=== PATIENT | female | born 1950 | race Two or more races ===

== ENCOUNTER 2016-12-17 19:35 | Emergency (ER) | payer MEDICARE, MEDICAID ==
[~2016-12-17] VITALS: Ht 157.5 cm; Wt 54.4 kg
[~2016-12-17 19:35] MED LIST: ATORVASTATIN CA10 MG ORAL; METFORMIN HCL500 M1 ORAL
[2016-12-17] MEDS ORDERED: Meclizine 25mg tab ORAL STA (20:16)
[2016-12-17] MEDS ORDERED: LORazepam 0.5mg tab ORAL ONE (20:30)
[2016-12-17 20:48] LABS: EOSINOPHILS % (AUTO) 1.4 % (0.0-3.0); LYMPHOCYTES % (AUTO) 39.3 % (20.0-45.0); MEAN CORPUSCULAR HEMOGLOBIN 30.4 PG (27.0-31.0); MEAN CORPUSCULAR HGB CONC 33.4 G/DL (32.0-36.0); MEAN CORPUSCULAR VOLUME 91 FL (80-99); MEAN PLATELET VOLUME 7.7 FL (6.5-10.1); MONOCYTES % (AUTO) 7.6 % (1.0-10.0); NEUTROPHILS % (AUTO) 50.8 % (45.0-75.0); PLATELET COUNT 267 K/UL (150-450); RED BLOOD COUNT 4.21 M/UL (4.20-5.40); RED CELL DISTRIBUTION WIDTH 11.8 % (11.6-14.8); WHITE BLOOD COUNT 8.8 K/UL (4.8-10.8)
[2016-12-17 21:08] LABS: ALANINE AMINOTRANSFERASE 11 U/L (3-33); ALBUMIN/GLOBULIN RATIO 1.4 (1.0-2.7); ANION GAP 14 (5-15); ASPARTATE AMINO TRANSFERASE 13 U/L (5-40); CALCIUM 10.1 mg/dL (8.6-10.2); CARBON DIOXIDE 28 mEQ/L (20-30); CHLORIDE 92 mEQ/L (98-107); GLOMERULAR FILTRATION RATE 55.1 mL/min (>60); HEMOLYSIS 6; MAGNESIUM 1.8 mg/dL (1.7-2.5); POTASSIUM 4.6 mEQ/L (3.4-4.9); SODIUM 134 mEQ/L (135-145); TOTAL PROTEIN 8.4 g/dL (6.6-8.7)
[2016-12-17 21:27] LABS: PROTHROMBIN TIME 9.7 SEC (9.30-11.50)
[2016-12-17 21:37] LABS: APPEARANCE,URINE CLEAR; KETONES,URINE NEGATIVE (NEGATIVE); LEUKOCYTE ESTERASE ,URINE NEGATIVE (NEGATIVE); NITRITE,URINE NEGATIVE (NEGATIVE); PH,URINE 5 (4.5-8.0); PROTEIN,URINE NEGATIVE (NEGATIVE); UROBILINOGEN,URINE NORMAL MG/DL (0.0-1.0)
[2016-12-17] MEDS ORDERED: LORazepam 1mg tab ORAL ONE (21:45)
[2016-12-17 22:20] VITALS: BP 122/71
[2016-12-17 22:23] LABS: ERYTHROCYTE SEDIMENTATION RATE 30 MM/HR (0-30)
[2016-12-17] MEDS ORDERED: ACETAZOLAMIDE250 MG ORAL (23:17)
[2016-12-17] MEDS ORDERED: ATIVAN1 MG ORAL (23:17)
[2016-12-17 23:45] VITALS: BP 122/71
--- NOTE | 2016-12-18 05:56 | Emergency Room Report ---
History of Present Illness General Chief Complaint: General Complaint Source: Patient Present Illness HPI Patient presents with 3 days of tinnitus. Denies RIOS. No ear pain. Hyperacusis - sounds bothering her. Unable to sleep due to constant noise and increased noise. No vertigo. No weakness. No fever. Was seen by brother who is ENT 2 days ago. He cleaned wax out of ear. The sound seems to be coming from both ears. Anxious and depressed. No meds taken. No chest pain, sore throat, congestion, allergies. Allergies: Coded Allergies: No Known Allergies (Unverified , 05/20/13) Patient History Now: No Nursing Documentation-PMH Hx Cardiac Problems: No Hx Diabetes: Yes Hx Cancer: No Hx Gastrointestinal Problems: No Hx Neurological Problems: No Physical Exam Vital Signs Date Time Temp Pulse Resp B/P Pulse Ox O2 Delivery O2 Flow Rate FiO2 12/17/16 19:40 98.2 94 15 139/73 98 Room Air Sp02 EP Interpretation: reviewed, normal General Appearance: well appearing, no apparent distress, GCS 15 Head: normocephalic Eyes: bilateral eye EOMI, bilateral eye PERRL, bilateral eye normal inspection ENT: TMs + canals normal - no masses or erythema, other - sound decreased with occlusion of L ear Neck: supple Respiratory: lungs clear, normal breath sounds Cardiovascular #1: regular rate, rhythm Cardiovascular #2: 2+ radial (R) Gastrointestinal: normal inspection, normal bowel sounds, non tender, no mass, non-distended Musculoskeletal: back normal, gait/station normal, normal range of motion Neurologic: alert, oriented x3, hydro operator III-XII nml as tested - patient wants to move head with EOM testing (final result is normal EOM), motor strength/tone normal, DTRs symmetric, sensory intact, cerebellar normal, normal gait, speech normal Psychiatric: anxious Skin: normal inspection, warm/dry Medical Decision Making Diagnostic Impression: Primary Impression: New onset tinnitus Qualified Codes: H93.19 - Tinnitus, unspecified ear Additional Impression: Hyperacusis Qualified Codes: H93.239 - Hyperacusis, unspecified ear ER Course Patient with tinnitus. DDx: reaction to medication, viral process, Meniere's disease, schwanoma, acoustic neuroma, electrolyte abnormality, anxiety/ depression amongst others. Urgent evaluation with labs. Patient also requests CT of head (late request). Treat with ativan, antivert and observation. Initial treatment reported as ineffective. Labs and CT unremarkable. Treat wit diamox, more ativan. Improved with marked decreased sy. Patient stable for outpatient observation and treatment. Laboratory Tests Test 12/17/16 20:37 White Blood Count 8.8 K/UL (4.8-10.8) Red Blood Count 4.21 M/UL (4.20-5.40) Hemoglobin 12.8 G/DL (12.0-16.0) Hematocrit 38.3 % (37.0-47.0) Mean Corpuscular Volume 91 FL (80-99) Mean Corpuscular Hemoglobin 30.4 PG (27.0-31.0) Mean Corpuscular Hemoglobin Concent 33.4 G/DL (32.0-36.0) Red Cell Distribution Width 11.8 % (11.6-14.8) Platelet Count 267 K/UL (150-450) Mean Platelet Volume 7.7 FL (6.5-10.1) Neutrophils (%) (Auto) 50.8 % (45.0-75.0) Lymphocytes (%) (Auto) 39.3 % (20.0-45.0) Monocytes (%) (Auto) 7.6 % (1.0-10.0) Eosinophils (%) (Auto) 1.4 % (0.0-3.0) Basophils (%) (Auto) 1.0 % (0.0-2.0) Erythrocyte Sedimentation Rate 30 MM/HR (0-30) Prothrombin Time 9.7 SEC (9.30-11.50) Prothrombin Time INR 1.0 (0.9-1.1) PTT 27 SEC (23-33) Urine Color Pale yellow Urine Appearance Clear Urine pH 5 (4.5-8.0) Urine Specific [place] 1.005 (1.005-1.035) Urine Protein Negative (NEGATIVE) Urine Glucose (UA) 3+ (NEGATIVE) H Urine Ketones Negative (NEGATIVE) Urine Occult Blood Negative (NEGATIVE) Urine Nitrite Negative (NEGATIVE) Urine Bilirubin Negative (NEGATIVE) Urine Urobilinogen Normal MG/DL (0.0-1.0) Urine Leukocyte Esterase Negative (NEGATIVE) Sodium Level 134 mEQ/L (135-145) L Potassium Level 4.6 mEQ/L (3.4-4.9) Chloride Level 92 mEQ/L (98-107) L Carbon Dioxide Level 28 mEQ/L (20-30) Anion Gap 14 (5-15) Blood Urea Nitrogen 23 mg/dL (7-23) Creatinine 1.0 mg/dL (0.5-0.9) H Estimate Glomerular Filtration Rate 55.1 mL/min (>60) Glucose Level 245 mg/dL (74-106) H Calcium Level 10.1 mg/dL (8.6-10.2) Magnesium Level 1.8 mg/dL (1.7-2.5) Total Bilirubin < 0.2 mg/dL (0.0-1.2) Aspartate Amino Transferase (AST) 13 U/L (5-40) Alanine Aminotransferase (ALT) 11 U/L (3-33) Alkaline Phosphatase 64 U/L (35-104) Total Creatine Kinase 53 U/L (26-140) Total Protein 8.4 g/dL (6.6-8.7) Albumin 5.0 g/dL (3.5-5.2) Globulin 3.4 g/dL Albumin/Globulin Ratio 1.4 (1.0-2.7) CT/MRI/US Diagnostic Results CT/MRI/US Diagnostic Results : Imaging Test Ordered: head Impression nl brain, bones, ST Last Vital Signs Date Time Temp Pulse Resp B/P Pulse Ox O2 Delivery O2 Flow Rate FiO2 12/17/16 23:45 98.5 78 16 122/71 100 Room Air Status: improved Disposition: HOME, SELF-CARE Condition: Improved Scripts Acetazolamide* (ACETAZOLAMIDE*) 250 Mg Tablet 250 MG ORAL DAILY, #7 TAB Prov: Pablo Daley M.D. 12/17/16 Lorazepam* (ATIVAN*) 1 Mg Tablet 1 MG ORAL THREE TIMES A DAY, #10 TAB Prov: Pablo Daley M.D. 12/17/16 Patient Instructions: Tinnitus Additional Instructions: I believe you have Meniere's disease. You need to see your doctor to make sure the medicine I am prescribing is not causing your potassium to be low. Also you need to see an ENT specialist (ask your doctor for a referral). Try not to take the ativan every day. Take it at least at night to help you sleep. Try not to take more than 3 times a week. Pablo Daley M.D. Dec 18, 2016 05:56
--- NOTE | 2016-12-18 10:03 | Diagnostic Imaging Report ---
CT Brain without Intravenous Contrast INDICATION: Dizziness. COMPARISON: None TECHNIQUE: Serial axial images were obtained from the the skull base through the vertex without intravenous contrast. Coronal reformats were obtained. Dose Estimate: Total DLP 1337 mGycm CTDIvol 70 mGy FINDINGS: Few scattered periventricular and subcortical white matter hypodensities are nonspecific but may reflect the sequela of chronic microangiopathy. There is no evidence of acute intracranial hemorrhage or territorial infarct. The cortical sulci, ventricles and extra-axial CSF spaces appear prominent but likely normal for patient's age. There is no space occupying lesion, mass effect or midline shift. The visualized paranasal sinuses and mastoid air cells are clear. The osseous structures are unremarkable. IMPRESSION: 1. No acute intracranial hemorrhage, midline shift or mass effect. 2. Few scattered white matter hypodensities are nonspecific but may reflect the sequela of chronic microangiopathy.
== END 2016-12-17 23:45 | disposition home or self-care (01) ==
LOC: EMR 20:59
DX: H93.19 Tinnitus, unspecified ear (principal); H93.239 Hyperacusis, unspecified ear; E11.9 Type 2 diabetes mellitus without complications
CPT/HCPCS: 36415; 70450; 80053; 81003; 82550; 83735; 85025; 85610; 85651; 85730; 99284

== ENCOUNTER 2016-12-31 15:45 | Emergency (ER) | payer MEDICARE, OTHER ==
[~2016-12-31] VITALS: Ht 157.5 cm; Wt 54.4 kg
[~2016-12-31 15:45] MED LIST changes: +ACETAZOLAMIDE250 MG ORAL; +ATIVAN1 MG ORAL
[2016-12-31 16:05] VITALS: BP 135/70
[2016-12-31] MEDS ORDERED: ACETAZOLAMIDE250 MG ORAL (16:25)
[2016-12-31] MEDS ORDERED: ATIVAN1 MG ORAL (16:25)
[2016-12-31] MEDS ORDERED: VERTICALM25 MG ORAL (16:25)
--- NOTE | 2016-12-31 18:57 | Emergency Room Report ---
History of Present Illness General Chief Complaint: General Complaint Source: Patient (ASHOK GARCIA) Present Illness HPI The patient is a 66-year-old female presenting for tinnitus. The patient was seen in this emergency department 2 weeks prior and full workup including blood work and CT of the head were unremarkable. The patient was given a prescription for Ativan and acetazolamide And was told to followup with ENT. The patient states that these medications did help and the tinnitus resolved but returned yesterday. The patient has been unable to see an ENT who specializes in Tinnitus .The patient denies any pain. Patient describes sound as a loud "WHOOSH" to both ears but primarily left. The patient denies any other symptoms including nausea, vomiting, fever, chills, dizziness, blurred vision, ear pain, ear discharge, RIOS (ASHOK GARCIA) Allergies: Coded Allergies: No Known Allergies (Unverified , 05/20/13) Patient History Past Medical History: see triage record Pertinent Family History: none Now: No Reviewed Nursing Documentation: PMH: Agreed, PSxH: Agreed (ASHOK GARCIA) Nursing Documentation-PMH Past Medical History: No History, Except For Hx Cardiac Problems: No Hx Diabetes: Yes Hx Cancer: No Hx Gastrointestinal Problems: No Hx Neurological Problems: No (ASHOK GARCIA) Review of Systems All Other Systems: negative except mentioned in HPI (ASHOK GARCIA) Physical Exam Vital Signs Date Time Temp Pulse Resp B/P Pulse Ox O2 Delivery O2 Flow Rate FiO2 12/31/16 15:56 98.4 99 16 146/75 100 Room Air Sp02 EP Interpretation: reviewed, normal General Appearance: no apparent distress, alert, GCS 15, non-toxic Head: normocephalic, atraumatic Eyes: bilateral eye PERRL, bilateral eye normal inspection ENT: hearing grossly normal, normal pharynx, no angioedema, normal voice, TMs + canals normal, uvula midline Neck: full range of motion, supple/symm/no masses Musculoskeletal: back normal, gait/station normal, normal range of motion, non- tender Neurologic: alert, oriented x3, responsive, motor strength/tone normal, sensory intact, speech normal Psychiatric: judgement/insight normal, memory normal, no suicidal/homicidal ideation, anxious Skin: normal color, no rash, warm/dry, well hydrated Lymphatic: no adenopathy (ASHOK GARCIA) Medical Decision Making PA Attestation Dr. Lyles is my supervising physician. Patient management was discussed with my supervising physician (ASHOK GARCIA) Diagnostic Impression: Primary Impression: Tinnitus ER Course The patient is a 66-year-old female presenting for tinnitus. Differential diagnosis include but not limited to otitis externa, otitis media, mastoiditis, TMJ, tinnitus PE: vitals WNL. Pt appears anxious HEENT exam: Ears show no signs of infection. External auditory canal is clear. No erythema or edema. Tympanic membranes are intact bilaterally. No bulging or erythema. No cervical lymphadenopathy TMJ is present on right side The patient will be given refills of medications and meclizine will be added. The patient will be discharged and is advised to followup with ENT as soon as possible as the emergency department will not be able to help with long-term treatment. ER precautions are given (ASHOK GARCIA) ER Course I evaluated this patient in the ED at [facility] with my advanced practice provider (Physician Casting Operator Helper) colleague, who practices under my general supervision. My impressions concur with the advanced practice provider in regards to their obtained history of present illness, physical exam, general management, diagnosis, and disposition. In particular, I agree with PA-obtained interpretation of imaging, rhythm strip. For the evening and overnight shifts, we do not have the benefit of an in-house Radiologist to review xrays so our interpretation may be limited. Patients are to be discharged only with normal vital signs (or if we discussed a particular exception), a plan for follow-up care, and understand to return to the ED for worsening symptoms. Please see midlevel healthcare providers note for further details. (DOUG LYLES M.D.) Last Vital Signs Date Time Temp Pulse Resp B/P Pulse Ox O2 Delivery O2 Flow Rate FiO2 12/31/16 16:33 98.4 89 16 135/70 100 Room Air Status: improved (ASHOK GARCIAAAntonio) Disposition: HOME, SELF-CARE Condition: Improved Scripts Lorazepam* (ATIVAN*) 1 Mg Tablet 1 MG ORAL THREE TIMES A DAY, #15 TAB Prov: ASHOK GARCIAA. 12/31/16 Acetazolamide* (ACETAZOLAMIDE*) 250 Mg Tablet 250 MG ORAL DAILY, #7 TAB Prov: ASHOK GARCIA.A. 12/31/16 Meclizine Hcl* (VERTICALM*) 25 Mg Tablet 25 MG ORAL DAILY, #7 TAB Prov: ASHOK GARCIA P.A. 12/31/16 Referrals: NOT CHOSEN IPA/,REFERRING (PCP) Patient Instructions: Tinnitus Additional Instructions: I discussed my findings with the patient. All questions and concerns have been answered. Treatment and medication compliance have been addressed. I advised the patient that they need to follow up with PMD in 3-5 days. Return to ED if symptoms worsen, new symptoms arise, or if needed for any reason. Patient verbalized understanding of discharge instructions. The patient will keep upcoming appointment with tinnitus specialist as discussed. ASHOK GARCIA Dec 31, 2016 18:57 DOUG LYLES M.D. Jan 01, 2017 14:32
== END 2016-12-31 16:33 | disposition home or self-care (01) ==
LOC: EMR 16:05
DX: H93.19 Tinnitus, unspecified ear (principal); M26.601 Right temporomandibular joint disorder, unspecified; E11.9 Type 2 diabetes mellitus without complications
CPT/HCPCS: 99284

== ENCOUNTER 2017-09-10 14:38 | Emergency (ER) | payer MEDICARE, OTHER ==
[~2017-09-10] VITALS: Ht 157.5 cm; Wt 51.7 kg
[~2017-09-10 14:38] MED LIST changes: +ALPRAZOLAM0.5 MG PO; +GLUCOPHAGE500 MG PO; +MULTIVITAMINS1 EAC2 PO; +VERTICALM25 MG ORAL
--- NOTE | 2017-09-10 15:35 | Emergency Room Report ---
History of Present Illness General Chief Complaint: Pain Source: Patient Present Illness HPI 67-year-old female, history of diabetes, presents with left knee pain for 4 days. Patient states that she got up from standing position, noticed that her left knee became increasingly painful and swollen. Denies falling or twisting her knee. Denies any fever chills nausea vomiting. States that it was very swollen on , she elevated and iced it and the swelling has come down. States that she has been able to ambulate however does complain of pain. She has been taking Vicodin with improvement of the pain Allergies: Coded Allergies: NYLON (Verified Allergy, Unknown, 09/10/17) Uncoded Allergies: METALS (Allergy, Unknown, 09/10/17) Patient History Past Medical History: see triage record Past Surgical History: none Pertinent Family History: none Reviewed Nursing Documentation: PMH: Agreed, PSxH: Agreed Nursing Documentation-PMH Hx Cardiac Problems: Yes Hx Diabetes: Yes Hx Cancer: No Hx Gastrointestinal Problems: Yes Hx Neurological Problems: No Review of Systems All Other Systems: negative except mentioned in HPI Physical Exam Vital Signs Date Time Temp Pulse Resp B/P (MAP) Pulse Ox O2 Delivery O2 Flow Rate FiO2 09/10/17 15:10 98.4 119 16 143/79 99 Room Air Sp02 EP Interpretation: reviewed, normal General Appearance: normal inspection, well appearing, no apparent distress, alert, GCS 15, non-toxic Head: normocephalic, atraumatic Eyes: bilateral eye normal inspection, bilateral eye PERRL, bilateral eye EOMI ENT: normal ENT inspection, normal pharynx, normal voice, moist mucus membranes Neck: normal inspection, full range of motion, supple Respiratory: normal inspection, lungs clear, normal breath sounds, no respiratory distress, no retraction, no wheezing, speaking full sentences, chest symmetrical Cardiovascular #1: normal inspection, regular rate, rhythm, normal capillary refill Cardiovascular #2: 2+ radial (R), 2+ radial (L) Gastrointestinal: normal inspection, non tender, soft, non-distended, no guarding Musculoskeletal: other - Left knee with effusion, not warm, has full range of motion however does complain of pain, tender to palpation, no overlying erythema Neurologic: normal inspection, alert, oriented x3, responsive, motor strength/ tone normal, sensory intact, normal gait, speech normal Psychiatric: normal inspection, judgement/insight normal, memory normal Skin: normal inspection, normal color, no rash, warm/dry, well hydrated, normal turgor Medical Decision Making Diagnostic Impression: Primary Impression: Effusion, left knee Additional Impression: Left knee pain ER Course 67-year-old female with left knee pain DDX: Contusion, fracture, ligamentous injury, arthritis, septic arthritis At this time I am not concerned with septic arthritis given patient is nontoxic- appearing, has full range of motion, does not have any warmth or erythema Plan: Young wrap ER course: XR reveals effusion without fracture Disposition: Patient is to be discharged home Patient educated to rest, ice, and elevate extremity and to avoid vigorous activity. Strict precautions discussed with patient on when to return to the emergency room including increased redness or swelling joints, increased pain/swelling of extremity, fever or chills, which could indicate severe illness. Patient is to follow up with their primary care doctor within 5 days. Patient also instructed to follow up with an orthopedic doctor if continuing to have mild/moderate pain as she may need further outpatient imaging. Patient agrees with plan. Please note that this Emergency Department Report was dictated using [employer] technology software, occasionally this can lead to erroneous entry secondary to interpretation by the dictation equipment. Xray ordered: Left knee 3 view Indication: Pain EP Interpretation: Yes Interpretation: + Effusion , no fractures Impression: Effusion Electronically signed by Grzegorz Chavez MD Last Vital Signs Date Time Temp Pulse Resp B/P (MAP) Pulse Ox O2 Delivery O2 Flow Rate FiO2 09/10/17 15:10 98.4 119 16 143/79 99 Room Air Disposition: HOME, SELF-CARE Condition: Improved Grzegorz Chavez M.D. Sep 10, 2017 15:35
[2017-09-10 18:40] VITALS: BP 145/85
--- NOTE | 2017-09-11 13:01 | Diagnostic Imaging Report ---
Indication: Pain 3 views of the left knee were obtained. Findings: There is no obvious fracture seen. The study is technically limited due to the knee being wrapped. There is evidence of a joint effusion with opacification of the suprapatellar region. Tibial spines are ill-defined. Small osteophytes noted in the patellofemoral compartment. IMPRESSION: No obvious fracture. Some limitations on this study. Consider CT as clinically warranted. Joint effusion noted.
== END 2017-09-10 16:40 | disposition home or self-care (01) ==
LOC: MERGE 15:05 → EMR 15:05
DX: M25.462 Effusion, left knee (principal); M25.562 Pain in left knee; E11.9 Type 2 diabetes mellitus without complications
CPT/HCPCS: 99283

== ENCOUNTER 2020-03-16 13:19 | Emergency (ER) | payer MEDICARE, OTHER ==
[~2020-03-16] VITALS: Ht 157.5 cm; Wt 61.7 kg
--- NOTE | 2020-03-16 13:26 | NUR ---
ED Nurse Note: Pt ambulated to ED d/t chronic low back pain with 10/10 scale. Pt is AOx4, calm and cooperative. VSS, on RA, afebrile on triage. Placed on bed.
--- NOTE | 2020-03-16 13:28 | NUR ---
ED Nurse Note: ERPA at bedside.
[2020-03-16 13:30] VITALS: BP 129/73
--- NOTE | 2020-03-16 13:40 | NUR ---
ED Nurse Note: urine collected, sent to labs.
[2020-03-16] MEDS ORDERED: Morphine Sulfate 2mg/ml Inj(IV/IM USE ONLY) IM ONE (13:45)
[2020-03-16 14:10] LABS: APPEARANCE,URINE CLEAR; BILIRUBIN, URINE NEGATIVE (NEGATIVE); COLOR,URINE PALE YELLOW; GLUCOSE, URINE (UA) 1+ (NEGATIVE); KETONES,URINE NEGATIVE (NEGATIVE); LEUKOCYTE ESTERASE ,URINE 1+ (NEGATIVE); NITRITE,URINE NEGATIVE (NEGATIVE); PH,URINE 5 (4.5-8.0); PROTEIN,URINE NEGATIVE (NEGATIVE); UROBILINOGEN,URINE NORMAL MG/DL (0.0-1.0)
--- NOTE | 2020-03-16 14:49 | Diagnostic Imaging Report ---
EXAM: CT CT Pelvis no Contrast INDICATION: Reason For Exam: PAIN. COMPARISON: None TECHNIQUE: Axial images were obtained through the pelvis without intravenous contrast. Sagittal and coronal reformats are generated. All CT scans at this facility are performed using dose modulation techniques as appropriate to a performed exam including the following: automated exposure control with adjustment of the mA and/or kV according to patient size. RADIATION DOSE: CTDIvol: 4.7 mGy DLP: 152.1 mGy-cm Dose information generated by the CT scanner is available in PACS. FINDINGS: Small bowel loops are nondistended. There is diverticulosis without sign of acute diverticulitis. The appendix is normal. There is no free fluid or free air. No pathologic adenopathy demonstrated. Urinary bladder appears unremarkable. Bony pelvis appears intact. No acute bony abnormality seen. Slight sclerosis noted at the left pubic symphysis and superior pubic ramus perhaps sequela of old trauma. IMPRESSION: NO ACUTE BONY ABNORMALITY OF THE PELVIS. SLIGHT SCLEROSIS NOTED INVOLVING THE LEFT SUPERIOR PUBIC RAMUS AND PUBIC SYMPHYSIS REGION PERHAPS SEQUELA OF OLD HEALED TRAUMA. DIVERTICULOSIS
--- NOTE | 2020-03-16 15:03 | Diagnostic Imaging Report ---
EXAM: CT CT L Spine no Contrast CLINICAL HISTORY: Back pain. TECHNIQUE: Axial images obtained through the lumbar spine with subsequent sagittal and coronal reformat images. All CT scans at this facility are performed using dose modulation techniques as appropriate to a performed exam including the following: automated exposure control with adjustment of the mA and/or kV according to patient size. RADIATION DOSE: CTDIvol: 7.2 mGy DLP: 216.2 mGy-cm Dose information generated by the CT scanner is available in PACS. COMPARISON: None FINDINGS: Alignment is mostly anatomic. There is minimal degenerative anterolisthesis of L3 on L4 and L4 on L5. Vertebral bodies are intact without compression deformity. There is no fracture, bony lesions or erosions. Disc heights are relatively well-maintained. Evaluation of disc disease by CT is limited but there is mild pseudobulging at L3-4 estimated at 2 mm and there is also mild pseudobulging at L4-5 approximately 2 to 3 mm. Bilateral facet hypertrophy and ligamentum flavum also noted at both levels. There is estimated mild to moderate narrowing of the spinal canal at L3-4 and moderate narrowing of the spinal canal at L4-5. No acute paraspinal soft tissue abnormality seen. There is diverticulosis of the sigmoid colon. IMPRESSION: SPONDYLOSIS OF THE LUMBAR SPINE NOTED ABOVE. SLIGHT ANTEROLISTHESIS OF L3 ON L4 AND L4 AND L5 RELATED TO DEGENERATIVE DISC AND FACET DISEASE. MILD TO MODERATE SPINAL CANAL NARROWING AT L3-4 AND MODERATE SPINAL CANAL NARROWING AT L4-5.
[2020-03-16] MEDS ORDERED: IBUPROFEN600 M1 ORAL (15:08)
[2020-03-16] MEDS ORDERED: ACETAMINOPHEN-1 EAC1 ORAL (15:08)
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
--- NOTE | 2020-03-16 15:15 | NUR ---
ER DISCHARGE NOTE: Patient is cleared to be discharged per ERMD, pt is aox4, on room air, with stable vital signs. pt was given dc and prescription instructions, pt was able to verbalize understanding, pt id band removed without complications. pt is able to ambulate with steady gait. pt took all belongings.
[2020-03-16 15:16] VITALS: BP 125/80
== END 2020-03-16 15:15 | disposition home or self-care (01) ==
LOC: EMR 13:45
DX: M47.9 Spondylosis, unspecified (principal); M48.061 Spinal stenosis, lumbar region without neurogenic claudication; K57.90 Diverticulosis of intestine, part unspecified, without perforation or abscess without bleeding; Z91.048 Other nonmedicinal substance allergy status; E11.9 Type 2 diabetes mellitus without complications
CPT/HCPCS: 72131; 72192; 81003; 96372; 99284; J2270

== ENCOUNTER 2020-04-08 11:43 | Emergency (ER) | payer MEDICARE, OTHER ==
[~2020-04-08] VITALS: Ht 157.5 cm; Wt 57.2 kg
[~2020-04-08 11:43] MED LIST changes: +ACETAMINOPHEN-1 EAC1 ORAL; +IBUPROFEN600 M1 ORAL
[2020-04-08 11:50] VITALS: BP 134/72
--- NOTE | 2020-04-08 12:40 | Emergency Room Report ---
History of Present Illness General Chief Complaint: Lower Back Pain or Injury Source: Patient Present Illness HPI Patient presents with increased pain in the left lower lumbar area radiating down to her thigh. She has a long history of degenerative disc disease. Surgery was recommended but she is afraid to go through with this due to the possibility of being disabled from it. She says that no medicines are working for her at this time. She has taken Vicodin in the past. She says she is not taking in this at this time. She has also been on gabapentin. She denies fevers or chills. She denies recent trauma. She denies incontinence. There is no numbness in the legs. She denies weakness. She is not taking blood thinners. She denies oncologic problems. She rates the pain 8/10 and somewhat burning and aching. It is constant. She denies increased pain when she sits down or bends over. The back pain is been present for approximately 2 years. Recently she is had swelling in her ankles. This is a new problem and has not been evaluated. She denies calf tenderness, pleuritic chest pain or hemoptysis. She denies pain associated with the swelling. No sore throat, palpitations, nausea, vomiting, diarrhea, dysuria, abdominal pain, shortness of breath, rashes, depression, anxiety, visual changes, dizziness, headache. Patient is a type II diabetic on metformin. Allergies: Coded Allergies: NYLON (Verified Allergy, Unknown, 10/04/17) Uncoded Allergies: METALS (Allergy, Unknown, 10/04/17) COVID-19 Screening Contact w/high risk pt: No Recent Travel to affected area: No Experienced COVID-19 symptoms?: No COVID-19 Testing performed CLAY MINER: No Patient History Past Medical History: see triage record, DM, other - Lumbar disc disease Past Surgical History: other - Hernia repair, cataract surgery Social History: Denies: smoking Social History Narrative Psychologist Reviewed Nursing Documentation: PMH: Agreed; PSxH: Agreed Nursing Documentation-PMH Past Medical History: No History, Except For Hx Cardiac Problems: No - back pain Hx Diabetes: Yes Hx Cancer: No Hx Gastrointestinal Problems: No Hx Neurological Problems: No Review of Systems All Other Systems: negative except mentioned in HPI Physical Exam Vital Signs Date Time Temp Pulse Resp B/P (MAP) Pulse Ox O2 Delivery O2 Flow Rate FiO2 04/08/20 11:44 97.9 90 18 131/68 (89) 99 Room Air Sp02 EP Interpretation: reviewed, normal General Appearance: well appearing, no apparent distress, GCS 15 Head: normocephalic Eyes: bilateral eye PERRL - Silastic lenses ENT: moist mucus membranes Neck: full range of motion, supple Respiratory: lungs clear, normal breath sounds Cardiovascular #1: regular rate, rhythm, edema - Bilaterally 1+ Cardiovascular #2: 2+ radial (R), 2+ dorsalis pedis (R), 2+ dorsalis pedis (L) Gastrointestinal: normal inspection, normal bowel sounds, non tender, no mass, non-distended Genitourinary: no CVA tenderness Musculoskeletal: normal range of motion, no calf tenderness, gait/station normal, tender, other - Straight leg raise negative bilateral Neurologic: alert, motor strength/tone normal, oriented x3, sensory intact, cerebellar normal, speech normal Psychiatric: mood/affect normal Reflexes: 2+ knee (R), 2+ knee (L); 1+ ankle (R), 1+ ankle (L) Skin: no rash, normal color, warm/dry Medical Decision Making Diagnostic Impression: Primary Impression: Low back pain Qualified Codes: M54.5 - Low back pain Additional Impression: Edema Qualified Codes: R60.0 - Localized edema ER Course Patient presents with lumbar pain radiating to her left thigh along with new onset edema. Differential includes sciatica, degenerative disc disease, radiculopathy, muscle spasm, UTI amongst others. No red flags signs or symptoms. Differential of the edema includes renal dysfunction, right heart failure, malnutrition amongst others. DVT is excluded based on physical exam. There is no evidence of pulmonary embolus at this time. Discussed evaluation with patient for edema with labs. Patient treated with Tylenol and Robaxin. Patient states she has a physical therapy appointment and cannot take the time for laboratory evaluation. I discussed the importance of determining whether she has any renal dysfunction at this time particularly with the consideration of treating with nonsteroidal anti-inflammatory medications with the underlying comorbidity of diabetes on metformin. She understands this but insists on leaving. Exam most consistent with degenerative disc disease with some radiculopathy without signs of sciatica. Patient encouraged that neurologic exam is good at this time. The pain is somewhat improved at this time. She states that in the future she may elect to come back to have further evaluation of the edema. No medical emergency at this time. Patient is stable for outpatient observation and treatment. Last Vital Signs Date Time Temp Pulse Resp B/P (MAP) Pulse Ox O2 Delivery O2 Flow Rate FiO2 04/08/20 13:00 98.1 72 18 137/79 98 Room Air Status: improved Disposition: HOME, SELF-CARE Condition: Improved Scripts Acetaminophen (Tylenol) 325 Mg Tablet 650 MG ORAL Q6H PRN for Prn Pain/Headache/Temp > 101, #20 TAB 0 Refills Prov: Pablo Daley MD 04/08/20 Methocarbamol* (ROBAXIN-500*) 500 Mg Tablet 500 MG ORAL TID, #10 TAB 0 Refills Prov: Pablo Daley MD 04/08/20 Pablo Daley MD Apr 08, 2020 12:40
[2020-04-08] MEDS ORDERED: ROBAXIN-500MG ORAL (12:43)
[2020-04-08] MEDS ORDERED: TYLENOL325 MG ORAL (12:43)
[2020-04-08] MEDS ORDERED: Methocarbamol 500mg tab ORAL ONE ×2 (12:45→12:47)
[2020-04-08 13:00] VITALS: BP 137/79
== END 2020-04-08 13:00 | disposition home or self-care (01) ==
LOC: EMR 12:09
DX: M54.5 Low back pain (principal); R60.0 Localized edema; E11.9 Type 2 diabetes mellitus without complications; M51.36 Other intervertebral disc degeneration, lumbar region
CPT/HCPCS: 99282

== ENCOUNTER 2020-04-09 15:05 | Emergency (ER) | payer MEDICARE, OTHER ==
[~2020-04-09] VITALS: Ht 157.5 cm; Wt 57.2 kg
[~2020-04-09 15:05] MED LIST changes: +ROBAXIN-500MG ORAL; +TYLENOL325 MG ORAL
--- NOTE | 2020-04-09 15:25 | NUR ---
ED Nurse Note:pt. came from home with chronic lower back pain no injury reported, seen by ER PA, then was given pain meds
--- NOTE | 2020-04-09 15:34 | Emergency Room Report ---
History of Present Illness General Chief Complaint: Lower Back Pain or Injury Source: Patient Present Illness HPI 70-year-old female with history of chronic back injury who has been told multiple times by crime data specialist and needs operation here requesting blood work. Patient reports that she was here at [facility] yesterday and was told by the physician on duty yesterday that she can come back for further blood work today as she had to leave early yesterday. Patient arrives at 330 and reports that she wants to have the blood drawn as soon as possible as she has an appointment with physical therapist at 4. Patient is also requesting morphine. Patient reports that no other medication works. Patient reports that she has been to multiple crime data specialist in multiple hospitals and been told that she needs an operation however she does not want to have any surgery done. Patient reports that she does not understand why she has to wait for the lab results. Patient reports that she will come back later for the results or have 1 of the physicians call her and explained the lab results to her. Patient reports that every time that she was her primary doctor primary doctor draws blood work however at this time her primary doctor is unable to see her until the last 3 months. Patient also is requesting to return tomorrow earlier time for blood draw as she has to go home now. I explained to the patient that this is in the emergency department and we cannot expedite blood draw as an outpatient setting. Patient reports that it was recommended to her by the physician on duty at [facility] yesterday that she needs blood work and it was offered to her to return to the emergency room today for more blood work. I explained to the patient that we can do the blood work however it will not be completed and patient discharged cannot be completed within the next 30 minutes upon arrival as blood work needs to be drawn and sent to the lab as well as interpreted. Allergies: Coded Allergies: NYLON (Verified Allergy, Unknown, 10/04/17) Uncoded Allergies: METALS (Allergy, Unknown, 10/04/17) COVID-19 Screening Contact w/high risk pt: No Recent Travel to affected area: No Experienced COVID-19 symptoms?: No COVID-19 Testing performed BUS VAN DRIVER: No Patient History Past Medical History: see triage record Past Surgical History: none Pertinent Family History: none Now: No Immunizations: UTD Reviewed Nursing Documentation: PMH: Agreed; PSxH: Agreed Nursing Documentation-PM Past Medical History: No History, Except For Hx Diabetes: Yes Hx Cancer: No Hx Gastrointestinal Problems: No Hx Neurological Problems: No Review of Systems All Other Systems: negative except mentioned in HPI Physical Exam Vital Signs Date Time Temp Pulse Resp B/P (MAP) Pulse Ox O2 Delivery O2 Flow Rate FiO2 04/09/20 15:09 98.2 92 18 126/75 (92) 96 Room Air Sp02 EP Interpretation: reviewed, normal General Appearance: no apparent distress, alert, GCS 15, non-toxic Head: normocephalic, atraumatic Eyes: bilateral eye normal inspection, bilateral eye PERRL ENT: hearing grossly normal, normal pharynx, no angioedema, normal voice Neck: full range of motion, supple/symm/no masses Respiratory: chest non-tender, lungs clear, normal breath sounds, no rhonchi, no retraction, speaking full sentences Cardiovascular #1: normal inspection, no murmur Cardiovascular #2: 2+ dorsalis pedis (R), 2+ dorsalis pedis (L) Gastrointestinal: normal inspection, soft Rectal: deferred Genitourinary: no CVA tenderness Musculoskeletal: back normal, digits/nails normal, no calf tenderness Neurologic: alert, motor strength/tone normal, oriented x3, sensory intact, responsive, speech normal Psychiatric: judgement/insight normal, memory normal, mood/affect normal, no suicidal/homicidal ideation Skin: no rash Lymphatic: no adenopathy Medical Decision Making PA Attestation All diagnoses and treatment plans were reviewed and discussed with my supervising physician Dr. Lara Diagnostic Impression: Primary Impression: Chronic back pain ER Course 70-year-old female with history of chronic back injury who has been told multiple times by crime data specialist and needs operation here requesting blood work. Patient reports that she was here at [facility] yesterday and was told by the physician on duty yesterday that she can come back for further blood work today as she had to leave early yesterday. Patient arrives at 330 and reports that she wants to have the blood drawn as soon as possible as she has an appointment with physical therapist at 4. Patient is also requesting morphine. Patient reports that no other medication works. Patient reports that she has been to multiple crime data specialist in multiple hospitals and been told that she needs an operation however she does not want to have any surgery done. Patient reports that she does not understand why she has to wait for the lab results. Patient reports that she will come back later for the results or have 1 of the physicians call her and explained the lab results to her. Patient reports that every time that she was her primary doctor primary doctor draws blood work however at this time her primary doctor is unable to see her until the last 3 months. Patient also is requesting to return tomorrow earlier time for blood draw as she has to go home now. I explained to the patient that this is in the emergency department and we cannot expedite blood draw as an outpatient setting. Patient reports that it was recommended to her by the physician on duty at [facility] yesterday that she needs blood work and it was offered to her to return to the emergency room today for more blood work. I explained to the patient that we can do the blood work however it will not be completed and patient discharged cannot be completed within the next 30 minutes upon arrival as blood work needs to be drawn and sent to the lab as well as interpreted. Ddx considered but are not limited to: Lumbar spine sprain, strain, fracture, contusion, neuropathy, chronic back pain Vital signs: are WNL, pt. is afebrile H&PE are most consistent with: Chronic back pain ORDERS: No imaging necessary as patient just recently had a CT scan of pelvis and lumbar region at [facility] about a month ago. ER intervention: Toradol DISCHARGE: At this time pt. is stable for d/c to home. Will provide printed patient care instructions, and any necessary prescriptions. Care plan and follow up instructions have been discussed with the patient prior to discharge. Patient agrees to be given list of family clinics to go into as patient requested me to call and make sure that is close to her house in [place] I advised patient that I will give her a list and she can contact and see which one has an availability. Patient agrees with this assessment. Patient also will follow with primary doctor for blood work. Last Vital Signs Date Time Temp Pulse Resp B/P (MAP) Pulse Ox O2 Delivery O2 Flow Rate FiO2 04/09/20 15:09 98.2 92 18 126/75 (92) 96 Room Air Disposition: HOME, SELF-CARE Condition: Stable Patient Instructions: Back Pain, Adult Additional Instructions: You need to go to see your primary doctor for regular labs you walked in at 330 and you have an appointment at home at 4:00 we cannot expedite labs for you at this time in an emergency room setting we have to go based on the level of emergency. You were told by the physician on duty yesterday that you can come back today for blood work however 30 minutes is not enough time for blood draw. Follow-up with primary doctor. Since your next appointment with your primary is in 3 months from now you have can go to any of the family clinics that I am listing in your aftercare instructions. Abhilash Castaneda Apr 09, 2020 15:34
[2020-04-09 15:43] VITALS: BP 126/75
[2020-04-09 15:45] VITALS: BP 126/75
[2020-04-09] MEDS ORDERED: Ketorolac 30mg Inj IM ONE (15:45)
--- NOTE | 2020-04-09 15:45 | NUR ---
ED Nurse Note: Pt cleared by health care Provider for discharge. DC instructions/prescription was given and explained to pt and verbalized understanding of teachings. All medical deviecs such as ID band removed. Pt is AAO x4, ambulatory and left with all personal belongings.
== END 2020-04-09 15:50 | disposition home or self-care (01) ==
LOC: EMR 15:34
DX: G89.29 Other chronic pain (principal); M54.5 Low back pain; E11.9 Type 2 diabetes mellitus without complications; Z91.09 Other allergy status, other than to drugs and biological substances
CPT/HCPCS: 96372; 99283; J1885